=== PATIENT | female | born 1990 | race American Indian/Alaskan Native ===

== ENCOUNTER 2020-08-04 09:20 | Emergency (ER) | payer OTHER ==
--- NOTE | 2020-08-05 07:43 | Ultrasound Report ---
FIRSTTRIMESTER OBSTETRIC ULTRASOUND ULTRASOUND OB TRANSVAGINAL HISTORY: Vaginal bleeding during COMPARISON: None. TECHNIQUE: Routine transabdominal and transvaginal OB ultrasound performed. FINDINGS: Uterus: Mildly enlarged measuring 11.5 x 4.5 x 6.8 cm. Gestational Sac: Well-defined oval shape and intrauterine in location. Yolk Sac: Normal in appearance. Fetus/Embryo: [place]-rump length of 1.2 cm, corresponding to an estimated gestational age of 7 weeks 3 days. Embryonic/ anatomy is too small for evaluation. Embryonic/ cardiac activity: 147bpm Placenta: Too small for evaluation. Amniotic fluid volume: Subjectively appropriate for gestational age. Ovaries: The right ovary is normal in size and appearance with normal blood flow, measuring 3.2 x 1. 8 x 3.3 cm. The left ovary is mildly enlarged and contains multiple small cysts or prominent follicl es, the left ovary measures 5.3 x 3.1 x 5.5 cm. Hypoechoic space-occupying mass in the right ovary w ith peripheral vascularity is most likely the corpus luteum. Additional findings: A small subchorionic hemorrhage is identified. IMPRESSION Early live intrauterine . Small subchorionic hemorrhage. Slightly enlarged left ovary with multiple small cysts or prominent follicles. Consider follow-up. Signer Name: Damián Spicer Jr, MD Signed: 08/05/2020 7:38 AM Workstation Name: [id number]
[2020-08-06 12:47] LABS: Alanine Aminotransferase 14 units/L (7-56); Albumin 3.8 g/dL (3.9-5); BUN/Creatinine Ratio 8; Blood Urea Nitrogen 6 mg/dL (7-17); Calcium 8.8 mg/dL (8.4-10.2)
== END 2020-08-04 12:50 | disposition home or self-care (01) ==
LOC: ED 09:20
DX: O20.8 Other hemorrhage in early pregnancy (principal)
CPT/HCPCS: 36415; 76801; 76817; 80053; 84702; 86900; 86901; 99283

== ENCOUNTER 2021-01-28 23:24 | Outpatient (CLI) | payer OTHER ==
[2021-01-28 23:52] VITALS: BP 126/74
[2021-01-29] MEDS ORDERED: LACTATED RINGERS 1,000 ML IV ONE (00:02)
[2021-01-29 00:38] LABS: Bacteria,Urine 1+ /HPF (Negative); Bilirubin,Urine NEG (Negative); Blood,Urine NEG (Negative); Color,Urine Yellow (Yellow); Mucus,Urine FEW /HPF; Protein,Urine <15 mg/dL mg/dL (Negative); RBC,Urine < 1.0 /HPF (0.0-6.0)
--- NOTE | 2021-01-29 01:52 | Ultrasound Report ---
Limited OB Ultrasound HISTORY: placenta placement, rule out abruption. TECHNIQUE: Grayscale and color imaging performed. COMPARISON: 08/04/2020 FINDINGS: Single viable intrauterine gestation with cephalic presentation. The placenta is fundal in location with no acute abnormality identified. Heart rate of the fetus is 138 bpm. IMPRESSION: Single viable intrauterine gestation with fundal position of the placenta and no acute ab normality. Signer Name: Chetan Alford MD Signed: 01/29/2021 1:48 AM Workstation Name: [id number]
== END 2021-01-29 00:50 | disposition home or self-care (01) ==
LOC: TRG 23:24 → APU 23:31 → TRG 01-29 00:50
PROVIDERS: ATTEND Obstetrics & Gynecology
DX: O47.03 False labor before 37 completed weeks of gestation, third trimester (principal); Z3A.32 32 weeks gestation of pregnancy
CPT/HCPCS: 59025; 76815; 81001

== ENCOUNTER 2021-02-23 13:42 | Outpatient (CLI) | payer OTHER ==
[2021-02-23] MEDS ORDERED: ACETAMINOPHEN 325 MG TAB PO ONE (15:37)
[2021-02-23] MEDS ORDERED: LACTATED RINGERS 1,000 ML IV SCH (15:45)
[2021-02-23 16:11] LABS: Bacteria,Urine 1+ /HPF (Negative); Bilirubin,Urine NEG (Negative); Blood,Urine NEG (Negative); Color,Urine Amber (Yellow); Mucus,Urine FEW /HPF
[2021-02-23 16:22] LABS: Hematocrit 28.2 % (30.3-42.9); Hemoglobin 9.7 gm/dl (10.1-14.3); Mean Corpuscular HGB Conc 34 % (30-34); Mean Corpuscular Volume 92 fl (79-97); Platelet Count 333 K/mm3 (140-440); Red Blood Count 3.07 M/mm3 (3.65-5.03)
[2021-02-23 16:49] LABS: Alanine Aminotransferase 72 units/L (7-56); Uric Acid 3.7 mg/dL (3.5-7.6)
[2021-02-23] MEDS ORDERED: BUTALB/ACETAMINOPHEN/CAFFEINE TAB PO PRN (17:00)
--- NOTE | 2021-02-23 17:00 | Ultrasound Report ---
US OB BPP wo non-stress, US OB limited INDICATION / CLINICAL INFORMATION: well being. COMPARISON: 01/29/2021 FINDINGS: Single, viable intrauterine in cephalic presentation. heart rate 139. Amniotic fluid volume is normal, with a fluid index of 15 cm. Biophysical profile: breathing movements: 2 movements: 2 posture and tone: 2 Amniotic fluid volume: 2 Total biophysical profile score 8/8 IMPRESSION: 1. Single, viable intrauterine . Biophysical profile score of 8/8. Signer Name: Melvin Cobos MD Signed: 02/23/2021 4:55 PM Workstation Name: [id number]
[2021-02-23] MEDS ORDERED: diphenhydrAMINE 50 MG/ML VIAL IV ONE (18:36)
[2021-02-23] MEDS ORDERED: PROCHLORPERAZINE EDISYLATE 10 MG/2 ML VIAL IV NR (18:37)
[2021-02-23 20:36] VITALS: BP 118/53
== END 2021-02-23 21:03 | disposition home or self-care (01) ==
LOC: TRG 13:42 → APU 13:43 → TRG 21:03
DX: O60.03 Preterm labor without delivery, third trimester (principal); Z3A.36 36 weeks gestation of pregnancy
CPT/HCPCS: 36415; 59025; 76815; 76819; 81001; 82565; 83615; 84450; 84460; 84550; 85027; 96365; 96368; J0780; J1200; 96374; 96375

== ENCOUNTER 2021-03-02 05:59 | Inpatient (IN) | payer OTHER ==
[~2021-03-02 05:59] MED LIST: CARBOPROST TROMETHAMINE 250 MCG/1 ML INJ IM PRN; LOPERAMIDE 2 MG CAP PO PRN; METHYLERGONOVINE MALEATE 0.2 MG/ML VIAL IM PRN; OXYTOCIN 10 UNIT/1 ML INJ IM PRN; OXYTOCIN DRIP 30 UNITS/500 ML BAG IV SCH; TERBUTALINE 1 MG/1 ML INJ SUB-Q PRN; ePHEDrine SULFATE 50 MG/1 ML INJ IV PRN; miSOPROStol 200 MCG TAB PR PRN
[2021-03-02] MEDS: LACTATED RINGERS 1,000 ML IV SCH ×4 (06:30→22:23)
[2021-03-02 06:38] LABS: Hematocrit 28.7 % (30.3-42.9); Mean Corpuscular HGB Conc 35 % (30-34); Mean Corpuscular Volume 92 fl (79-97); Platelet Count 324 K/mm3 (140-440); Red Blood Count 3.12 M/mm3 (3.65-5.03); Red Cell Distribution Width 19.4 % (13.2-15.2)
[2021-03-02] MEDS ORDERED: METOCLOPRAMIDE 10 MG/2 ML INJ IV ONE (06:45)
[2021-03-02] MEDS ORDERED: FAMOTIDINE 20 MG/2 ML INJ IV ONE (06:45)
[2021-03-02] MEDS ORDERED: BICITRA ORAL LIQD 30ML PO ONE (06:45)
[2021-03-02] MEDS ORDERED: ceFAZolin/STERILE WATER 2 GM/20 ML SYRINGE IV NR (06:45)
[2021-03-02] MEDS ORDERED: dexAMETHasone 20 MG/5 ML VIAL ONE (07:20)
[2021-03-02] MEDS ORDERED: ONDANSETRON 4 MG/2 ML INJ ONE (07:20)
[2021-03-02] MEDS ORDERED: BUPIVACAINE/PF (0.5%) 5 MG/1 ML 30 ML VIAL INFILTRATI ONE (07:20)
[2021-03-02] MEDS ORDERED: KETOROLAC 30 MG/1 ML INJ ONE (07:20)
--- NOTE | 2021-03-02 07:32 | History and Physical Report ---
History of Present Illness Date of examination: 03/02/21 Date of admission: 03/02/21 05:59 Chief complaint: scheduled section History of present illness: Pt is a 31 year old BOLA 04/02/21 at 37w0d who presents for scheduled section due to gestational hypertension, previous x 2, gestational diabetes, and morbid obesity. She reports movement, denies vaginal bleeding, leakage of fluid and reports irregular contractions. She has had limited care at [facility] for three visits with comanagement by [facility] complicated by the aforementioned issues as well as congenital HSV, anemia on iron supplementation, and lapse in care from 14 to 36 wks when pt reports care at [place] but records not yet received. She is GBS negative. Past History Past Medical History: hypertension (gestational ), diabetes (gestational, non compliant with metformin ) Past Surgical History: cholecystectomy, section (x 2 ) PROGRAM SUPERVISOR History: herpes Family/Genetic History: diabetes, heart disease Social history: no significant social history - Obstetrical History Expected Date of Delivery: 03/23/21 Actual Gestation: 37 Week(s) 0 Day(s) : 3 Para: 2 Hx # Term Pregnancies: 2 Number of Pregnancies: 0 Spontaneous Abortions: 0 Induced : 0 Number of Living Children: 2 Medications and Allergies Allergies Allergy/AdvReac Type Severity Reaction Status Date / Time No Known Allergies Allergy Verified 09/04/15 09:33 Home Medications Medication Instructions Recorded Confirmed Last Taken Type Ferrous Sulfate [Iron 325 MG] 1 tab PO DAILY 03/02/21 03/02/21 Unknown History Vit-Fe Fumar-FA [ 1 tab PO DAILY 03/02/21 03/02/21 Unknown History Vitamin] metFORMIN [Glucophage] 1 tab PO DAILY 03/02/21 03/02/21 Unknown History Active Meds: Active Medications Carboprost Tromethamine (Carboprost Tromethamine 250 Mcg/1 Ml Inj) 250 mcg IM ONCE PRN PRN Reason: Uterine Bleeding Cefazolin Sodium (Cefazolin/Sterile Water 2 Gm/20 Ml Syringe) 2 gm IV PREOP NR Stop: 03/02/21 23:59 Ephedrine Sulfate (Ephedrine Sulfate 50 Mg/1 Ml Inj) 10 mg IV Q2M PRN PRN Reason: Hypotension Lactated Ringer's (Lactated Ringers) 1,000 mls @ 2,250 mls/hr IV PREOP MITALI Stop: 03/03/21 05:27 Last Admin: 03/02/21 07:15 Dose: 2,250 mls/hr Documented by: Oxytocin/Sodium Chloride (Pitocin/Ns 30 Unit/500ml) 30 units in 500 mls @ 0 mls/hr IV TITR MITALI; Protocol Cefazolin Sodium 3 gm/ Sodium (Chloride) 100 mls @ 100 mls/30 min IV PREOP NR; Protocol Loperamide HCl (Loperamide 2 Mg Cap) 2 mg PO ONCE PRN PRN Reason: give with Hemabate Methylergonovine Maleate (Methylergonovine Maleate 0.2 Mg/Ml Vial) 0.2 mg IM ONCE PRN PRN Reason: Uterine Bleeding Misoprostol (Misoprostol 200 Mcg Tab) 800 mcg ID ONCE PRN PRN Reason: Uterine Bleeding Oxytocin (Oxytocin 10 Unit/1 Ml Inj) 10 unit IM ONCE PRN PRN Reason: Uterine Bleeding Terbutaline Sulfate (Terbutaline 1 Mg/1 Ml Inj) 0.25 mg SUB-Q ONCE PRN PRN Reason: Hyperstimulation/Hypertonicity Review of Systems All systems: negative - Vital Signs Vital signs: Vital Signs Temp Resp 97.9 F 18 03/02/21 06:20 03/02/21 06:20 Temp Pulse Resp BP Pulse Ox 97.9 F 103 H 18 124/67 100 03/02/21 06:20 03/02/21 07:13 03/02/21 06:20 03/02/21 06:58 03/02/21 07:13 - Physical Exam Breasts: Positive: deferred Abdomen: Positive: soft (obese, gravid ) Uterus: Positive: enlarged Extremities: Positive: edema - Obstetrical FHR: auscultation normal Uterine Contraction Monitor Mode: External Uterine Contraction Pattern: Irregular Uterine Tone Measurement Phase: Resting Results Result Diagrams: 03/02/21 06:20 Abnormal lab results 03/02/21 Range/Units 06:20 RBC 3.12 L (3.65-5.03) M/mm3 Hgb 10.0 L (10.1-14.3) gm/dl Hct 28.7 L (30.3-42.9) % MCHC 35 H (30-34) % RDW 19.4 H (13.2-15.2) % All other labs normal. Assessment and Plan A: IUP at 37w0d Gestational Hypertension Gestational Diabetes, non compliant with metformin Previous x 2 Morbid Obesity Anemia GBS Negative P: Admit to labor and delivery Prepare for repeat section and other indicated procedures
[2021-03-02] MEDS ORDERED: ceFAZolin/STERILE WATER 2 GM/20 ML SYRINGE IV ONE (07:35)
--- NOTE | 2021-03-02 07:49 | Anesthesia Day of Surgery ---
Anesthesia Day of Surgery - Day of Surgery Patient Examined: Yes Patient H&P Reviewed: Yes Patient is NPO: Yes Beta Blockers: No Cardiac Clearance: No Pulmonary Clearance: No Dhaval's Test: N/A
--- NOTE | 2021-03-02 07:50 | Anesthesia Consultation ---
Anesthesia Consult and Med Hx Date of service: 03/02/21 - Airway Anesthetic Teeth Evaluation: Good ROM Head & Neck: Adequate Mental/Hyoid Distance: Adequate Mallampati Class: Class IV Intubation Access Assessment: Difficult - Pulmonary Exam CTA: Yes - Cardiac Exam Cardiac Exam: RRR - Pre-Operative Health Status ASA Pre-Surgery Classification: ASA3 Proposed Anesthetic Plan: Spinal Nerve Block: TAP - Pulmonary Hx Smoking: No Hx Asthma: No Hx Sleep Apnea: No - Cardiovascular System Hx Hypertension: Yes Hx Heart Attack/AMI: No Hx Angina: No - Central Nervous System Hx Seizures: No Hx Psychiatric Problems: Yes (DEPRESSION, ANXIETY) - Gastrointestinal Hx Gastroesophageal Reflux Disease: No - Endocrine Hx Renal Disease: No Hx Liver Disease: No Hx Insulin Dependent Diabetes: Yes Hx Non-Insulin Dependent Diabetes: No Hx Hypothyroidism: No Hx Hyperthyroidism: No - Hematic Hx Anemia: No Hx Sickle Cell Disease: No - Other Systems Hx Alcohol Use: Yes (sociallly prior to ) Hx Substance Use: Yes (occasional marijuana) Hx Obesity: Yes
[2021-03-02] MEDS ORDERED: diphenhydrAMINE 50 MG/ML VIAL IV PRN (07:51)
[2021-03-02] MEDS ORDERED: NalbUPHINE 10 MG/1 ML INJ IV PRN (07:51)
--- NOTE | 2021-03-02 07:51 | Progress Note ---
Spinal Anesthesia Block - Spinal Anesthesia Block Start Time: 07:25 Stop Time: 07:35 Performed by:: LUCIA CHI (Caden MCCANN) Procedure: Spinal anesthesia block is being performed for [C/S]. H&P, labs have been reviewed. Patient's questions and concerns have been answered. Informed consent has been performed. Timeout has was performed. Patient in sitting position on side of bed. Sterile prep and drape was performed. 3 mL 1% lid ocaine skin wheal at L [2]-L [3]. Needle introducer advanced. 25-gauge spinal needle advanced, [+] CSF [-] blood. [Marcaine 10mg and Precedex 5mcg] Spinal dose was given. All needles removed. Patient tolerated procedure well.
[2021-03-02] MEDS ORDERED: ONDANSETRON 4 MG/2 ML INJ IV PRN (08:00)
[2021-03-02] MEDS ORDERED: PROMETHAZINE 25 MG TAB PO PRN (08:00)
[2021-03-02] MEDS ORDERED: PROMETHAZINE 25 MG RECT SUPP PR PRN (08:00)
[2021-03-02] MEDS ORDERED: NALOXONE 0.4 MG/1 ML INJ IV PRN ×2 (08:00→11:57)
[2021-03-02] MEDS ORDERED: HYDROmorphone 1 MG/1 ML INJ IV PRN (08:00)
[2021-03-02] MEDS ORDERED: LACTATED RINGERS 1,000 ML ONE (08:11)
[2021-03-02] MEDS ORDERED: PHENYLEPHRINE/NS 1,000 MCG/10 ML SYRINGE (OR USE) IV ONE (08:41)
--- NOTE | 2021-03-02 09:54 | Procedure Note ---
OB Delivery Note - Delivery Date of Delivery: 03/02/21 Surgeon: ABIODUN CHATTERJEE Estimated blood loss: other (812 mL) - Section Preop diagnosis: repeat , other (Gestational Hypertension ) Postop diagnosis: same section procedure: section, repeat low transverse Disposition: PACU Narrative: Please see operative report - A at 1 minute: 8 at 5 minutes: 9 Infant Gender: Male (3480g (7lb 10.7 oz) @ 0824 am)
--- NOTE | 2021-03-02 09:55 | Operative Report ---
Operative Report Operative Report: Date of procedure: March 02, 2021 Preoperative diagnosis: 1) IUP at 37w0d 2) Gestational Hypertension 3) Previous x 2 4) Morbid Obesity 45 5) Gestational Diabetes A2 6) Insufficient Care Postoperative diagnosis: Same Procedure: Repeat low transverse section Surgeon: Sangita Mcneill M.D. Anesthesia: Regional Findings: 1) Viable male , Apgars 8 and 9, weight 3480 g, (7 lb 10.7 oz) in cephalic presentation 2) Normal-appearing uterus ovaries and tubes Estimated blood loss: 812 mL IV fluids: 1800 mL Urine output: 100 mL, efe colored at the end of the procedure Drains: Hebert to gravity Specimens: Placenta to pathology Complications:None. Counts correct x 3 Disposition: Stable to PACU Indication for procedure: Pt is a 31 year old -[place] at 37w0d with gestational hypertension, previous x 2 presents for scheduled section. Operation in detail: After the risks, benefits, alternatives and complications were explained to the patient she gave informed consent for the procedure. She was subsequently taken to the operating room where regional anesthesia was noted to be adequate. She was placed in the dorsal supine position with leftward tilt and prepped and draped in a normal sterile fashion. heart tones were noted prior to incision. A timeout was performed. A Pfannenstiel skin incision was made with the knife and carried down to the layer of the fascia with the Bovie. The fascia was incised in the midline and t he fascial incision was extended bilaterally with the Bovie. The fascial incision was then stretched. The rectus muscles were then in the midline and partially transected for adequate visualization. The peritoneum was then entered bluntly. The peritoneal incision was extended with good visualization of the bladder. The peritoneal incision was then stretched. An Sandeep retractor was placed. The bladder blade was then placed. The vesicouterine peritoneum was grasped with smooth pick ups and incised with Metzenbaum scissors. A transverse incision was made in the lower uterine segment with a knife and extended bilaterally with the bandage scissors. Amniotomy was performed with egress of clear fluid. head delivered with some difficulty, followed by shoulders and body. bulb suctioned at delivery. Cord clamped and cut. handed to NICU staff in attendance. Cord blood was collected. The placenta was then delivered manually. The uterus was then cleared of all clots and debris. The hysterotomy was then reapproximated with 0 Monocryl in a running locked fashion. Additional figure of eight sutures of 0 Monocryl were used to obtain hemostasis. The hysterotomy was inspected and hemostasis was noted. The gutters were irrigated and cleared of all clots and debris. The hysterotomy was again inspected and noted to be hemostatic. Hemoblast was placed over the hysterotomy. The Sandeep retractor was removed. The peritoneum was reapproximated with 2-0 Vicryl in a running fashion. iThe rectus muscles were reapproximated with figure of eights of 2-0 Vicryl and 0 Vicryl. Surgicel was placed over the rectus muscles. The fascia was reapproximated with 0 Vicryl in a running fashion. The subcutaneous tissue was reapproximated with 3-0 Vicryl in a running fashion. The skin was reapproximated with 4-0 Vicryl in a subcuticular fashion. The incision was then covered with steri strips and a pressure dressing. The procedure was then ended. The patient tolerated the procedure well and was taken to the PACU in stable condition. All instrument, lap, and needle counts were correct 3.
[2021-03-02] MEDS ORDERED: DEXTROSE 50% IN WATER (25GM) 50 ML SYRINGE IV PRN (10:09)
--- NOTE | 2021-03-02 10:26 | Progress Note ---
Regional Anesthesia Block - Regional Anesthesia Block Start Time: 09:58 Stop Time: 10:04 Performed By:: LUCIA CHI (Caden MCCANN) Procedure: Patient consented for TAP block for post surgical pain management. Patient identified, monitors placed, and time out performed. Mid axillary TAP identified bilaterally via ultrasound. Skin prepped bilaterally with [chlorhexidine] and [20g stimuplex] needle advanced to the TAP. 30ml [Marcaine 0.25% with 25mcg Precedex and Decadron 5mg] injected under ultrasound guidance on the [left] side. 30ml [Marcaine 0.25% with 25mcg Precedex and Decadron 5mg] injected under ultrasound guidance on the [right] side. Negative aspiration every 5mL, Patient tolerated the procedure well. No apparent complications seen.
[2021-03-02] MEDS ORDERED: WITCH HAZEL/ GLYCERIN PAD TP PRN (11:57)
[2021-03-02] MEDS ORDERED: MORPHINE 2 MG/1 ML INJ IV PRN (11:57)
[2021-03-02] MEDS ORDERED: MORPHINE 4 MG/1 ML INJ IV PRN (11:57)
[2021-03-02] MEDS ORDERED: LANOLIN/ZINC/DIMETHICONE (LANSINOH) 7 GM TP PRN (11:57)
[2021-03-02] MEDS ORDERED: SIMETHICONE 80 MG CHEW TAB PO PRN (11:57)
[2021-03-02] MEDS: INSULIN REGULAR, HUMAN 100 UNITS/1 ML SUB-Q SCH ×2 (12:00→16:00)
[2021-03-02] MEDS: IBUPROFEN 800 MG TAB PO SCH (12:32)
[2021-03-02] MEDS ORDERED: OXYTOCIN DRIP 30 UNITS/500 ML BAG IV SCH (12:57)
[2021-03-02] MEDS ORDERED: D5W/LACTATED RINGERS 1,000 ML IV SCH (13:57)
[2021-03-02 14:34] LABS: Bilirubin,Urine SM (Negative); Blood,Urine NEG (Negative); Color,Urine Amber (Yellow); Mucus,Urine 3+ /HPF
[2021-03-02 14:47] LABS: Ictotest,Urine Negative (Negative)
[2021-03-02] MEDS: KETOROLAC 30 MG/1 ML INJ IV SCH ×2 (15:54→22:22)
[2021-03-02] MEDS: ceFAZolin/NS 1 GM/50 ML 1 GM/50 ML BAG IV SCH (15:54)
[2021-03-02 18:16] LABS: Hematocrit 27.2 % (30.3-42.9); Hemoglobin 9.3 gm/dl (10.1-14.3); Mean Corpuscular HGB Conc 34 % (30-34); Mean Corpuscular Volume 93 fl (79-97); Platelet Count 302 K/mm3 (140-440); Red Blood Count 2.93 M/mm3 (3.65-5.03)
[2021-03-02 19:52] LABS: Alanine Aminotransferase 58 units/L (7-56); Uric Acid 4.2 mg/dL (3.5-7.6)
[2021-03-03] MEDS: ceFAZolin/NS 1 GM/50 ML 1 GM/50 ML BAG IV SCH (00:24)
[2021-03-03 00:36] LABS: Hematocrit 23.8 % (30.3-42.9); Hemoglobin 8.2 gm/dl (10.1-14.3)
[2021-03-03] MEDS: IBUPROFEN 800 MG TAB PO SCH ×5 (01:42→18:09)
[2021-03-03] MEDS: KETOROLAC 30 MG/1 ML INJ IV SCH ×4 (04:46→18:17)
[2021-03-03] MEDS: INSULIN REGULAR, HUMAN 100 UNITS/1 ML SUB-Q SCH ×5 (05:26→15:53)
[2021-03-03] MEDS: oxyCODONE /ACETAMINOPHEN 5-325MG TAB PO PRN ×3 (07:43→22:37)
--- NOTE | 2021-03-03 08:18 | Progress Note ---
Assessment and Plan - Patient Problems (1) Status post repeat low transverse section Current Visit: Yes Status: Acute Plan to address problem: Continue routine PP orders Keep dressing clean and dry, remove on POD#2 Anticipate d/c home in 24-48 hr if stable (2) Gestational diabetes Current Visit: Yes Status: Acute Qualifiers: Gestational diabetes mellitus control: diet-controlled Plan to address problem: Change blood glucose monitoring to AC/HS with sliding scale coverage if needed Glucose levels have been normal PP (3) Anemia Current Visit: Yes Status: Acute Qualifiers: Anemia type: iron deficiency Plan to address problem: Asymptomatic Continue daily oral iron supplementation as ordered Increase iron rich foods into diet (4) Elevated ALT measurement Current Visit: Yes Status: Acute Plan to address problem: Repeat PIH labs ordered for this AM. Subjective - Subjective Date of service: 03/03/21 Principal diagnosis: S/P repeat C/S; POD#1 Interval history: Pt is a 31 year old BOLA 04/02/21 at 37w0d who presents for scheduled section due to gestational hypertension, previous x 2, gestational diabetes, and morbid obesity. She reports movement, denies vaginal bleeding, leakage of fluid and reports irregular contractions. She has had limited care at [facility] for three visits with comanagement by [facility] complicated by the aforementioned issues as well as congenital HSV, anemia on iron supplementation, and lapse in care from 14 to 36 wks when pt reports care at [place] but records not yet received. She is GBS negative. Patient reports: appetite normal, voiding normally, pain well controlled (with medications), flatus, ambulating normally, no bowel movement [place]: doing well, bottle feeding Objective - Vital Signs Latest vital signs: Vital Signs Temp Pulse Resp BP BP Pulse Ox 03/03/21 04:42 97.9 F 104 H 18 122/74 99 03/02/21 23:49 97.9 F 93 H 20 124/57 97 03/02/21 20:15 98.4 F 84 20 126/66 95 03/02/21 17:45 98.1 F 85 18 100/55 98 03/02/21 11:35 97.5 F L 78 16 104/54 99 03/02/21 10:52 97.5 F L 72 14 95/41 98 03/02/21 10:42 73 15 95/41 97 03/02/21 10:37 69 14 103/48 99 03/02/21 10:22 67 15 113/51 100 03/02/21 10:07 69 17 112/55 100 03/02/21 10:02 74 16 97/46 100 03/02/21 09:57 75 16 114/56 100 03/02/21 09:52 97.7 F 75 14 109/46 100 Intake and Output 03/02/21 03/03/21 03/03/21 23:59 07:59 15:59 Intake Total 1410 Output Total 650 1950 Balance 760 -1950 Intake: IV 1050 ANCEF/NS 1 GM/50 ML 1 gm 50 In 50 ml @ 100 mls/hr IV Q8H MITALI Rx#:[id number] Lactated Ringers 1,000 ml 1000 @ 125 mls/hr IV DIRECT MITALI Rx#:[id number] Intake, Free Water 360 Output: Urine 650 1950 Indwelling Catheter 650 800 Uretheral (Hebert) 800 Void 350 Other: Total, Output Amount 650 350 # Voids Void 1 - Exam Breasts: Present: normal Cardiovascular: Present: Regular rate Lungs: Present: Normal air movement Abdomen: Present: soft, tenderness Uterus: Present: firm, fundal height below umbilicus (U-1) Extremities: Present: edema (in ankles/feet) Incision: Present: dressed (no shadow drainage or bleeding noted) - Labs Labs: Abnormal lab results 03/02/21 03/02/21 03/02/21 Range/Units 10:26 12:12 13:50 WBC (4.5-11.0) K/mm3 RBC (3.65-5.03) M/mm3 Hgb (10.1-14.3) gm/dl Hct (30.3-42.9) % RDW (13.2-15.2) % POC Glucose 136 H 119 H (70-105) mg/dL AST (5-40) units/L ALT (7-56) units/L Lactate Dehydrogenase (91-180) units/L Urine WBC (Auto) 36.0 H (0.0-6.0) /HPF 03/02/21 03/02/21 03/02/21 Range/Units 15:59 17:52 17:52 WBC 13.1 H (4.5-11.0) K/mm3 RBC 2.93 L (3.65-5.03) M/mm3 Hgb 9.3 L (10.1-14.3) gm/dl Hct 27.2 L (30.3-42.9) % RDW 19.0 H (13.2-15.2) % POC Glucose 116 H (70-105) mg/dL AST 48 H (5-40) units/L ALT 58 H (7-56) units/L Lactate Dehydrogenase 219 H (91-180) units/L Urine WBC (Auto) (0.0-6.0) /HPF 03/03/21 03/03/21 03/03/21 Range/Units 00:12 00:29 04:40 WBC (4.5-11.0) K/mm3 RBC (3.65-5.03) M/mm3 Hgb 8.2 L (10.1-14.3) gm/dl Hct 23.8 L (30.3-42.9) % RDW (13.2-15.2) % POC Glucose 119 H 107 H (70-105) mg/dL AST (5-40) units/L ALT (7-56) units/L Lactate Dehydrogenase (91-180) units/L Urine WBC (Auto) (0.0-6.0) /HPF
[2021-03-03 08:38] LABS: Bilirubin,Urine NEG (Negative); Blood,Urine MOD (Negative); Color,Urine Amber (Yellow); Mucus,Urine 1+ /HPF
[2021-03-03 08:51] LABS: Hematocrit 24.5 % (30.3-42.9); Hemoglobin 8.6 gm/dl (10.1-14.3); Mean Corpuscular HGB Conc 35 % (30-34); Mean Corpuscular Volume 93 fl (79-97); Platelet Count 281 K/mm3 (140-440); Red Blood Count 2.63 M/mm3 (3.65-5.03); Red Cell Distribution Width 18.9 % (13.2-15.2)
[2021-03-03 09:10] LABS: Alanine Aminotransferase 57 units/L (7-56); Uric Acid 4.4 mg/dL (3.5-7.6)
[2021-03-03] MEDS ORDERED: CITALOPRAM 10 MG TAB PO NR (09:13)
--- NOTE | 2021-03-03 09:13 | Consultation ---
History of Present Illness - Reason for Consult Consult date: 03/03/21 Reason for consult: depression - History of Present Psychiatric Illness Anika Bliar is a 31y/o female patient who was admitted for childbirth by caesarian section. During my evaluation the patient was sitting in chair. Spouse and at bedside. The patient gives me permission to speak in front of him. She says she has a history of post- depression. The patient says she's been off her medication for months due to the . She says she was on celexa and would like to go back on it. The patient says it helped with the depression and anxiety. She denies SI/HI or hallucinations of any kind. She also denies any fear or feeling of endangerment. PAST PSYCHIATRIC HISTORY Diagnoses: PPD Suicide attempts or Self-harm behavior: Denies Prior psychiatric hospitalizations: Denies Substance Abuse history: Denies Previous psychiatric medications tried: celexa and trazodone Outpatient treatment: yes PAST MEDICAL HISTORY: None reported Family Psychiatric History: None reported or documented SOCIAL HISTORY Marital Status: Living Arrangements: with family Employment Status: Unemployed Access to guns/weapons: denies Education:high school diploma History of Abuse: Denies Legal History: Denies REVIEW OF SYSTEMS Constitutional: Negative for weight loss ENT: Negative for stridor Respiratory: Negative for cough or hemoptysis All other systems reviewed and are negative MENTAL STATUS EXAMINATION General Appearance and Behavior: Age appropriate, good hygiene, not wearing appropriate clothes, good eye contact, cooperative polite with questioning. Cooperation: Participating/engaged Psychomotor Behavior: Psychomotor agitation Mood: good Affect and affective range: congruent with stated mood Thought Process: goal directed Thought Content: none Speech: normal tone and pace Intellectual Functioning: Average Suicidal Ideation: Denies SI Homicidal Ideation: Denies HI Hallucinations: denies Delusions: none elicited Impulse Control: Impaired Insight and Judgment: Normal insight and judgment Memory: Normal Attention: Divided attention impaired Orientation: Alert, oriented, Assessment and Plan (1) Depression Current Visit: Yes Status: Acute Treatment Plan Celexa 10mg po daily Give first dose prior to discharge sitter: defer to primary Medical: per primary Disposition: do not recommend acute psychiatric inpatient treatment The patient to follow up in 7 to 14 days upon discharge The patient currently sees outpatient. Will sign off. Thank you for this consult Case staffed with Dr. Fragoso Medications and Allergies Allergies Allergy/AdvReac Type Severity Reaction Status Date / Time No Known Allergies Allergy Verified 09/04/15 09:33 Home Medications Medication Instructions Recorded Confirmed Last Taken Type Ferrous Sulfate [Iron 325 MG] 1 tab PO DAILY 03/02/21 03/02/21 Unknown History Vit-Fe Fumar-FA [ 1 tab PO DAILY 03/02/21 03/02/21 Unknown History Vitamin] metFORMIN [Glucophage] 1 tab PO DAILY 03/02/21 03/02/21 Unknown History Citalopram [celeXA] 10 mg PO QDAY #30 tablet 03/03/21 Unknown Rx Active Meds: Active Medications Carboprost Tromethamine (Carboprost Tromethamine 250 Mcg/1 Ml Inj) 250 mcg IM ONCE PRN PRN Reason: Uterine Bleeding Dextrose (Dextrose 50% In Water (25gm) 50 Ml Syringe) 50 ml IV Q30MIN PRN; Protocol PRN Reason: Hypoglycemia Diphenhydramine HCl (Diphenhydramine 50 Mg/Ml Vial) 12.5 mg IV Q2H PRN PRN Reason: Itching Diphtheria/Tetanus/Acell Pertussis (Tetanus,Diph,Pertuss(Acell) Vaccine 0.5 Ml Syringe) 0.5 ml IM .ONCE ONE Stop: 03/03/21 12:08 Ephedrine Sulfate (Ephedrine Sulfate 50 Mg/1 Ml Inj) 10 mg IV Q2M PRN PRN Reason: Hypotension Ferrous Sulfate (Ferrous Sulfate 325 Mg Tab) 325 mg PO QDAY MITALI Hydromorphone HCl (Hydromorphone 1 Mg/1 Ml Inj) 0.5 mg IV Q4H PRN PRN Reason: breakthrough pain > 7/10 Oxytocin/Sodium Chloride (Pitocin/Ns 30 Unit/500ml) 30 units in 500 mls @ 0 mls/hr IV TITR MITALI; Protocol Oxytocin/Sodium Chloride (Pitocin/Ns 30 Unit/500ml) 30 units in 500 mls @ 40 mls/hr IV TITR MITALI; Protocol Lactated Ringer's (Lactated Ringers) 1,000 mls @ 125 mls/hr IV DIRECT MITALI Last Admin: 03/02/21 22:23 Dose: 125 mls/hr Documented by: Ibuprofen (Ibuprofen 800 Mg Tab) 800 mg PO Q6H MITALI Last Admin: 03/03/21 01:43 Dose: Not Given Documented by: Insulin Human Regular (Insulin Regular, Human 100 Units/1 Ml) 0 units SUB-Q Q4H [facility]; Protocol Last Admin: 03/03/21 05:27 Dose: Not Given Documented by: Ketorolac Tromethamine (Ketorolac 30 Mg/1 Ml Inj) 30 mg IV Q6H [facility] Stop: 03/07/21 12:56 Last Admin: 03/03/21 04:46 Dose: 30 mg Documented by: Loperamide HCl (Loperamide 2 Mg Cap) 2 mg PO ONCE PRN PRN Reason: give with Hemabate Magnesium Hydroxide (Magnesium Hydroxide (Mom) Oral Liqd Udc) 30 ml PO QHS PRN PRN Reason: Constip Unrelieved By Senna Measles/Mumps/Rubella Vaccine Live (Measles, Mumps & Rubella 12,500 Unit/0.5 Ml Vaccine) 0.5 ml SUB-Q .ONCE ONE Stop: 03/03/21 12:08 Misoprostol (Misoprostol 200 Mcg Tab) 800 mcg KS ONCE PRN PRN Reason: Uterine Bleeding Morphine Sulfate (Morphine 2 Mg/1 Ml Inj) 2 mg IV Q4H PRN PRN Reason: Pain, Moderate (4-6) Last Admin: 03/02/21 19:58 Dose: 2 mg Documented by: Morphine Sulfate (Morphine 4 Mg/1 Ml Inj) 4 mg IV Q4H PRN PRN Reason: Pain , Severe (7-10) Multi-Ingredient Ointment (Lanolin/Zinc/Dimethicone (Lansinoh) 7 Gm) 1 applic TP PRN PRN PRN Reason: dryness/cracking Nalbuphine HCl (Nalbuphine 10 Mg/1 Ml Inj) 2.5 mg IV Q2H PRN PRN Reason: Itching Naloxone HCl (Naloxone 0.4 Mg/1 Ml Inj) 0.1 mg IV Q2MIN PRN PRN Reason: Res Rate </= 8 or 02 SAT < 92% Ondansetron HCl (Ondansetron 4 Mg/2 Ml Inj) 4 mg IV Q8H PRN PRN Reason: Nausea And Vomiting Oxycodone/Acetaminophen (Oxycodone /Acetaminophen 5-325mg Tab) 2 tab PO Q4H PRN PRN Reason: Pain, Moderate (4-6) Last Admin: 03/03/21 07:43 Dose: 2 tab Documented by: Promethazine HCl (Promethazine 25 Mg Tab) 25 mg PO Q6H PRN PRN Reason: Nausea And Vomiting Promethazine HCl (Promethazine 25 Mg Rect Supp) 25 mg KS Q6H PRN PRN Reason: Nausea And Vomiting Simethicone (Simethicone 80 Mg Chew Tab) 80 mg PO Q6H PRN PRN Reason: Gas pain Sodium Chloride (Sodium Chloride 0.9% 10 Ml Flush Syringe) 10 ml IV PRN MITALI Witch Belen/Glycerin (Witch Belen/ Glycerin Pad) 1 each TP PRN PRN PRN Reason: Hemorrhoids/cleansing/soothing Mental Status Exam - Vital signs Last Vital Signs Temp 97.4 F L 03/03/21 08:48 Pulse 98 H 03/03/21 08:48 Resp 18 03/03/21 08:48 BP 126/69 03/03/21 08:48 Pulse Ox 100 03/03/21 08:48 Results Result Diagrams: 03/03/21 08:27 03/02/21 17:52 Abnormal lab results 03/02/21 03/02/21 03/02/21 Range/Units 10:26 12:12 13:50 WBC (4.5-11.0) K/mm3 RBC (3.65-5.03) M/mm3 Hgb (10.1-14.3) gm/dl Hct (30.3-42.9) % MCH (28-32) pg MCHC (30-34) % RDW (13.2-15.2) % POC Glucose 136 H 119 H (70-105) mg/dL AST (5-40) units/L ALT (7-56) units/L Lactate Dehydrogenase (91-180) units/L Urine WBC (Auto) 36.0 H (0.0-6.0) /HPF 03/02/21 03/02/21 03/02/21 Range/Units 15:59 17:52 17:52 WBC 13.1 H (4.5-11.0) K/mm3 RBC 2.93 L (3.65-5.03) M/mm3 Hgb 9.3 L (10.1-14.3) gm/dl Hct 27.2 L (30.3-42.9) % MCH (28-32) pg MCHC (30-34) % RDW 19.0 H (13.2-15.2) % POC Glucose 116 H (70-105) mg/dL AST 48 H (5-40) units/L ALT 58 H (7-56) units/L Lactate Dehydrogenase 219 H (91-180) units/L Urine WBC (Auto) (0.0-6.0) /HPF 03/03/21 03/03/21 03/03/21 Range/Units 00:12 00:29 04:40 WBC (4.5-11.0) K/mm3 RBC (3.65-5.03) M/mm3 Hgb 8.2 L (10.1-14.3) gm/dl Hct 23.8 L (30.3-42.9) % MCH (28-32) pg MCHC (30-34) % RDW (13.2-15.2) % POC Glucose 119 H 107 H (70-105) mg/dL AST (5-40) units/L ALT (7-56) units/L Lactate Dehydrogenase (91-180) units/L Urine WBC (Auto) (0.0-6.0) /HPF 03/03/21 Range/Units 08:27 WBC (4.5-11.0) K/mm3 RBC 2.63 L (3.65-5.03) M/mm3 Hgb 8.6 L (10.1-14.3) gm/dl Hct 24.5 L (30.3-42.9) % MCH 33 H (28-32) pg MCHC 35 H (30-34) % RDW 18.9 H (13.2-15.2) % POC Glucose (70-105) mg/dL AST (5-40) units/L ALT (7-56) units/L Lactate Dehydrogenase (91-180) units/L Urine WBC (Auto) (0.0-6.0) /HPF All other labs normal.
[2021-03-03] MEDS: FERROUS SULFATE 325 MG TAB PO SCH (10:43)
[2021-03-03] MEDS: MAGNESIUM HYDROXIDE (MOM) ORAL LIQD UDC PO PRN (11:24)
[2021-03-03] MEDS ORDERED: FLU VACC QUAD 2020-2021 (6 months +)/PF 60 0.5 ML SYRINGE IM ONE (12:00)
[2021-03-03] MEDS ORDERED: TETANUS,DIPH,PERTUSS(ACELL) VACCINE 0.5 ML SYRINGE IM ONE (12:07)
[2021-03-03] MEDS ORDERED: MEASLES, MUMPS & RUBELLA 12,500 UNIT/0.5 ML VACCINE SUB-Q ONE (12:07)
--- NOTE | 2021-03-03 16:45 | Post Anesthesia Evaluation ---
- Post Anesthesia Evaluation Patient Participated: Yes Airway Patent: Yes Stable Respiratory Function: Yes Nausea/Vomiting: No Temp > 96.8F: Yes Pain Manageable: Yes Adequeate Hydration: Yes Anesthesia Complications: No Block Receding Appropriately: Yes Patient on Ventilator: No
[2021-03-04] MEDS: KETOROLAC 30 MG/1 ML INJ IV SCH (00:10)
[2021-03-04] MEDS: INSULIN REGULAR, HUMAN 100 UNITS/1 ML SUB-Q SCH ×7 (03:00→20:28)
[2021-03-04] MEDS: IBUPROFEN 800 MG TAB PO SCH ×2 (03:17→20:33)
--- NOTE | 2021-03-04 08:48 | Progress Note ---
Assessment and Plan - Patient Problems (1) Status post repeat low transverse section Current Visit: Yes Status: Acute Plan to address problem: Continue routine PP orders Keep incision clean and dry, abdominal binder as desired Anticipate d/c home in 24 hr if stable (2) Gestational diabetes Current Visit: Yes Status: Acute Qualifiers: Gestational diabetes mellitus control: diet-controlled Plan to address problem: Continue blood glucose monitoring as ordered (3) Anemia Current Visit: Yes Status: Acute Qualifiers: Anemia type: iron deficiency Plan to address problem: Asymptomatic Continue daily oral iron supplementation as ordered Increase iron rich foods into diet (4) Elevated ALT measurement Current Visit: Yes Status: Acute Plan to address problem: Remains elevated on 03/03/21 B/P stable Subjective - Subjective Date of service: 03/04/21 Principal diagnosis: S/P repeat C/S; POD#2 Interval history: Pt is a 31 year old BOLA 04/02/21 at 37w0d who presents for scheduled section due to gestational hypertension, previous x 2, gestational diabetes, and morbid obesity. She reports movement, denies vaginal bleeding, leakage of fluid and reports irregular contractions. She has had limited care at [facility] for three visits with comanagement by [facility] complicated by the aforementioned issues as well as congenit al HSV, anemia on iron supplementation, and lapse in care from 14 to 36 wks when pt reports care at [facility] but records not yet received. She is GBS negative. Patient reports: appetite normal, voiding normally, pain well controlled (with medications), flatus, ambulating normally [place]: doing well, bottle feeding Objective - Vital Signs Latest vital signs: Vital Signs Temp Pulse Resp BP Pulse Ox 03/04/21 01:07 98.0 F 91 H 20 124/73 99 03/03/21 15:46 97.8 F 91 H 18 135/54 99 03/03/21 08:48 97.4 F L 98 H 18 126/69 100 Intake and Output 03/03/21 03/04/21 03/04/21 23:59 07:59 15:59 Intake Total 480 240 Balance 480 240 Intake: Oral 480 240 Other: Total, Intake Amount 240 240 # Voids Void 1 1 - Exam Breasts: Present: normal Cardiovascular: Present: Regular rate Lungs: Present: Normal air movement Abdomen: Present: soft, tenderness Uterus: Present: firm, fundal height below umbilicus (U-2) Extremities: Present: edema Incision: Present: dry, intact - Labs Labs: Abnormal lab results 03/03/21 03/03/21 03/03/21 Range/Units 07:46 08:27 08:27 RBC 2.63 L (3.65-5.03) M/mm3 Hgb 8.6 L (10.1-14.3) gm/dl Hct 24.5 L (30.3-42.9) % MCH 33 H (28-32) pg MCHC 35 H (30-34) % RDW 18.9 H (13.2-15.2) % POC Glucose 126 H (70-105) mg/dL AST 48 H (5-40) units/L ALT 57 H (7-56) units/L Lactate Dehydrogenase 218 H (91-180) units/L
[2021-03-04] MEDS: oxyCODONE /ACETAMINOPHEN 5-325MG TAB PO PRN ×2 (09:27→17:00)
[2021-03-04] MEDS: FERROUS SULFATE 325 MG TAB PO SCH (09:27)
[2021-03-04] MEDS: MAGNESIUM HYDROXIDE (MOM) ORAL LIQD UDC PO PRN (12:28)
[2021-03-05] MEDS: INSULIN REGULAR, HUMAN 100 UNITS/1 ML SUB-Q SCH ×4 (00:04→11:20)
[2021-03-05] MEDS: IBUPROFEN 800 MG TAB PO SCH ×2 (06:23→13:58)
[2021-03-05 08:41] VITALS: BP 139/73
--- NOTE | 2021-03-05 08:43 | Progress Note ---
Assessment and Plan - Patient Problems (1) delivery delivered Current Visit: Yes Status: Acute Plan to address problem: patient doing better discharge home Subjective - Subjective Date of service: 03/05/21 Principal diagnosis: S/P repeat C/S; POD#2 Interval history: Patient reports feeling better. Pain is better controlled Patient reports: appetite normal, voiding normally, pain well controlled : doing well Objective - Vital Signs Latest vital signs: Vital Signs Temp Pulse Resp BP BP Pulse Ox 03/05/21 01:00 98.4 F 98 H 20 138/82 98 03/04/21 17:00 16 03/04/21 15:55 98.4 F 92 H 18 130/75 03/04/21 09:27 16 Intake and Output 03/04/21 03/05/21 03/05/21 22:59 06:59 14:59 Intake Total 240 Balance 240 Intake: Intake, Free Water 240 Other: # Voids Void 1 - Exam Abdomen: Present: normal appearance Incision: Present: normal
--- NOTE | 2021-03-05 08:44 | Discharge Summary ---
Providers - Providers Date of Admission: 03/02/21 05:59 Date of discharge: 03/05/21 Attending physician: BLANCA CHRISTIANSON 03/02/21 11:57 Consult to Jewel Bearing Facer [CONS] Routine Reason For Exam: 03/03/21 06:42 psychiatry consult [Consult to Mental Health] [CONS] Stat Reason For Exam: Depression: EPDS 20 Primary care physician: BLANCA CHRISTIANSON Hospitalization Reason for admission: section Delivery: Procedure: section, repeat low transverse Discharge diagnosis: IUP at term delivered Hospital course: Patient admitted for scheduled for gestational hypertension. See op note. complicated by depression. Patient re-initated on celexa and evaluated by psych. Denies suicidal or homocidial ideation. Disposition: - TO HOME OR SELFCARE - Discharge Diagnoses (1) delivery delivered Status: Acute Plan - Discharge Medications Prescriptions: Citalopram [celeXA] 20 mg PO QDAY #30 tablet Citalopram [celeXA] 10 mg PO QDAY #30 tablet Ibuprofen [Motrin] 800 mg PO Q8HR PRN #60 tablet PRN Reason: Pain , Severe (7-10) oxyCODONE /ACETAMINOPHEN [Percocet 5/325] 1 tab PO Q6HR PRN #30 tablet PRN Reason: Pain - Provider Discharge Summary Activity: no sex for 6 weeks, no heavy lifting 4 weeks, no strenuous exercise Diet: routine Instructions: routine Additional instructions: [] Smoking cessation referral if applicable(refer to patient education folder for contact #) [] Refer to [facility] Booklet Call your doctor immediately for: * Fever > 100.5 * Heavy vaginal bleeding ( >1 pad per hour) * Severe persistent headache * Shortness of breath * Reddened, hot, painful area to leg or breast * Drainage or odor from incision. * Keep incision clean and dry at all times and follow doctor's instructions regarding bathing/showering Schedule followup in one week with Dr Mcneill - Follow up plan
[2021-03-05] MEDS ORDERED: CITALOPRAM 10 MG TAB PO SCH (10:00)
[2021-03-05] MEDS: FERROUS SULFATE 325 MG TAB PO SCH (11:04)
== END 2021-03-05 15:30 | disposition home or self-care (01) | DRG 765 ==
LOC: APU 05:59 → OB 11:35
PROVIDERS: ADMIT Obstetrics & Gynecology; ATTEND Obstetrics & Gynecology
PROC: 10D00Z1 Extraction of Products of Conception, Low, Open Approach (ICD-10-PCS; principal; 2021-03-02)
PROC: 3E0234Z Introduction of Serum, Toxoid and Vaccine into Muscle, Percutaneous Approach (ICD-10-PCS; 2021-03-03)
DX: O13.4 Gestational [pregnancy-induced] hypertension without significant proteinuria, complicating childbirth (principal); D62 Acute posthemorrhagic anemia; O34.211 Maternal care for low transverse scar from previous cesarean delivery; Z3A.37 37 weeks gestation of pregnancy; E66.01 Morbid (severe) obesity due to excess calories; O24.429 Gestational diabetes mellitus in childbirth, unspecified control; O99.214 Obesity complicating childbirth; O99.02 Anemia complicating childbirth; F32.9 Major depressive disorder, single episode, unspecified; F41.9 Anxiety disorder, unspecified; O99.344 Other mental disorders complicating childbirth; Z20.822 Contact with and (suspected) exposure to COVID-19; Z37.0 Single live birth; Z88.3 Allergy status to other anti-infective agents; Z82.49 Family history of ischemic heart disease and other diseases of the circulatory system; Z23 Encounter for immunization
CPT/HCPCS: 36415; 59025; 81001; 82565; 82962; 83615; 84450; 84460; 84550; 85014; 85018; 85027; 86592; 86850; 86900; 86901; 87086; 88307; 90471; 90686; 96360; 96361; 96374; 96375; 99211; G0378; G0008; G0463; J0690; J1100; J1885; J2270; J2370; J2405; J2765; J3490; J7120; U0003

== ENCOUNTER 2021-03-11 12:59 | Emergency (ER) | payer OTHER ==
[2021-03-11 14:07] VITALS: BP 128/77
--- NOTE | 2021-03-11 15:35 | Event Note ---
ED Screening Note Date of service: 03/11/21 Time: 15:33 ED Screening Note: 31-year-old female patient presents to the emergency department with complaints of palpitations and vaginal bleeding starting this morning. Patient states she "woke up and her sheets were soaked with blood." Patient underwent section on March 02 without complications. OB is Dr. Mcneill. Additionally, patient reports foul smell emitting from her surgical incision. Tachycardic in triage. General: Awake, appropriately interactive, no acute distress. Neck: Supple. Full range of motion intact. Cardiovascular: Normal peripheral perfusion. Pulmonary: No respiratory distress. Patient is speaking normally without use of accessory muscles. Skin: No apparent rashes or lesions. Neurological: No facial asymmetry. Speech is clear. Follows commands. Patient is alert and oriented. Musculoskeletal: Moves all four extremities spontaneously with normal range of motion. Psych: Cooperative. Appropriate mood and affect. Initial labs ordered; decision to obtain imaging deferred to additional ED providers following full history and physical examination. I have greeted and performed a focused rapid initial assessment of this patient. A comprehensive ED assessment and evaluation of the patient, analysis of all test results, and completion of the medical decision-making process will be conducted by additional ED providers. This initial assessment/diagnostic orders/clinical plan/treatment(s) is/are subject to change based on patients health status, clinical progression and re-assessment. Further treatment and workup at subsequent clinical provider's discretion. Patient/guardian urged not to elope from the ED as their condition may be serious if not clinically assessed and managed.
[2021-03-11 16:00] LABS: Basophils # (Auto) 0.1 K/mm3 (0.0-0.1); Basophils % (Auto) 0.7 % (0.0-1.8); Eosinophils # (Auto) 0.3 K/mm3 (0.0-0.4); Eosinophils % (Auto) 2.7 % (0.0-4.3); Hematocrit 32.1 % (30.3-42.9); Hemoglobin 10.7 gm/dl (10.1-14.3); Lymphocytes # (Auto) 1.8 K/mm3 (1.2-5.4); Lymphocytes % (Auto) 17.4 % (13.4-35.0); Mean Corpuscular HGB Conc 33 % (30-34); Mean Corpuscular Volume 94 fl (79-97); Monocytes # (Auto) 0.5 K/mm3 (0.0-0.8); Monocytes % (Auto) 4.9 % (0.0-7.3); Platelet Count 496 K/mm3 (140-440); Red Blood Count 3.44 M/mm3 (3.65-5.03); Red Cell Distribution Width 18.2 % (13.2-15.2)
[2021-03-11 16:18] LABS: Alanine Aminotransferase 17 units/L (7-56); Albumin 4.1 g/dL (3.9-5); BUN/Creatinine Ratio 13; Blood Urea Nitrogen 10 mg/dL (7-17); Calcium 8.6 mg/dL (8.4-10.2); Hemolysis Index 3; INR 0.92 (0.87-1.13)
[2021-03-11 16:19] LABS: Partial Thromboplastin Time 25.8 Sec. (24.2-36.6)
--- NOTE | 2021-03-11 17:31 | Emergency Department Report ---
ED General Adult HPI - General Chief complaint: Vaginal Bleeding Stated complaint: CHEST/ADMONIAL PAIN/HEAVY BLEED Time Seen by Provider: 03/11/21 17:02 Source: patient Mode of arrival: Ambulatory Limitations: No Limitations - History of Present Illness Initial comments: 31-year-old female presents to the ER today with complaints of vaginal bleeding and palpitation. Patient states that she had a uncomplicated delivery March 02. She states that she was having some bleeding after the which she was told is to be expected but what was concerning for her today was that the bleeding was heavier than normal and she passed some clots. She states that she was holding her baby when she suddenly felt a gush in her vaginal area and when she looked it was lots of blood with clots. She has only used about 2 pads today, she states the first pad was soaked, and she is currently wearing a second pad. She denies any worsening abdominal pain since the increase bleeding today. She reports no abnormal discharge or UTI symptoms. She does complain of odor to her incision which she has noticed recently but no apparent pus drainage she has not noticed any increased redness or swelling around the wound. Patient also complains of palpitations which she also noticed this morning. She states that it feels like her heart is fluttering and she had some substernal chest tightness. She states that it has been intermittent throughout the day a little milder now since she has been in the ER. She denies any associated shortness of breath, cough, wheezing, fever or chills and she reports no leg swelling or calf pain. She states she smokes marijuana but denies any other illicit drug use. She states that she did have a coffee last night and so far has had 2 sodas but she denies any increased caffeine intake recently. She reports a history of gestational diabetes with this last she is not currently on any meds because she was taken off the meds by her OB other than the gestational diabetes she denies any other significant past history. Complaint: Vaginal bleeding; palpitation -: This morning Severity scale (0 -10): 7 - Related Data Home Medications Medication Instructions Recorded Confirmed Last Taken Ferrous Sulfate [Iron 325 MG] 1 tab PO DAILY 03/02/21 03/02/21 Unknown Vit-Fe Fumar-FA [ 1 tab PO DAILY 03/02/21 03/02/21 Unknown Vitamin] metFORMIN [Glucophage] 1 tab PO DAILY 03/02/21 03/02/21 Unknown Previous Rx's Medication Instructions Recorded Last Taken Type Citalopram [celeXA] 10 mg PO QDAY #30 tablet 03/03/21 Unknown Rx Citalopram [celeXA] 20 mg PO QDAY #30 tablet 03/05/21 Unknown Rx Ibuprofen [Motrin] 800 mg PO Q8HR PRN #60 tablet 03/05/21 Unknown Rx oxyCODONE /ACETAMINOPHEN [Percocet 1 tab PO Q6HR PRN #30 tablet 03/05/21 Unknown Rx 5/325] cephALEXin [Keflex] 500 mg PO Q8HR #21 cap 03/11/21 Unknown Rx Allergies Allergy/AdvReac Type Severity Reaction Status Date / Time No Known Allergies Allergy Verified 09/04/15 09:33 ED Review of Systems ROS: Stated complaint: CHEST/ADMONIAL PAIN/HEAVY BLEED Other details as noted in HPI Comment: All other systems reviewed and negative Constitutional: denies: chills, fever Eyes: denies: eye pain, eye discharge, vision change ENT: denies: ear pain, throat pain, dental pain, hearing loss, epistaxis, congestion Respiratory: denies: cough, shortness of breath, SOB with exertion, SOB at rest, wheezing Cardiovascular: chest pain (Substernal chest tightness), palpitations. denies: dyspnea on exertion, orthopnea, edema, syncope, paroxysmal nocturnal dyspnea Gastrointestinal: abdominal pain (Status post delivery, nothing worse recently). denies: nausea, diarrhea, constipation, hematemesis, melena, hematochezia Genitourinary: abnormal menses. denies: urgency, dysuria, frequency, hematuria, discharge Musculoskeletal: denies: back pain, joint swelling, arthralgia, myalgia Skin: denies: rash, lesions, change in hair/nails, pruritus Neurological: denies: headache, weakness, numbness, paresthesias, confusion, abnormal gait, vertigo Psychiatric: denies: anxiety, depression, auditory hallucinations, visual hallucinations, homicidal thoughts, suicidal thoughts Hematological/Lymphatic: denies: easy bleeding, easy bruising ED Past Medical Hx - Past Medical History Previous Medical History?: Yes Hx Hypertension: Yes Hx Heart Attack/AMI: No Hx Diabetes: No Hx Deep Vein Thrombosis: No Hx Liver Disease: No Hx Renal Disease: No Hx Sickle Cell Disease: No Hx Seizures: No Hx Asthma: No Hx HIV: No Additional medical history: anemia, ovarian cyst. gout - Surgical History Additional Surgical History: x1 - Social History Smoking Status: Never Smoker - Medications Home Medications: Home Medications Medication Instructions Recorded Confirmed Last Taken Type Ferrous Sulfate [Iron 325 MG] 1 tab PO DAILY 03/02/21 03/02/21 Unknown History Vit-Fe Fumar-FA [ 1 tab PO DAILY 03/02/21 03/02/21 Unknown History Vitamin] metFORMIN [Glucophage] 1 tab PO DAILY 03/02/21 03/02/21 Unknown History Citalopram [celeXA] 10 mg PO QDAY #30 tablet 03/03/21 Unknown Rx Citalopram [celeXA] 20 mg PO QDAY #30 tablet 03/05/21 Unknown Rx Ibuprofen [Motrin] 800 mg PO Q8HR PRN #60 tablet 03/05/21 Unknown Rx oxyCODONE /ACETAMINOPHEN [Percocet 1 tab PO Q6HR PRN #30 tablet 03/05/21 Unknown Rx 5/325] cephALEXin [Keflex] 500 mg PO Q8HR #21 cap 03/11/21 Unknown Rx ED Physical Exam - General Limitations: No Limitations General appearance: alert, in no apparent distress, obese - Head Head exam: Present: atraumatic, normocephalic, normal inspection - Eye Eye exam: Present: normal appearance, PERRL, EOMI Pupils: Present: normal accommodation - ENT ENT exam: Present: normal exam, mucous membranes moist - Neck Neck exam: Present: normal inspection, full ROM - Respiratory Respiratory exam: Present: normal lung sounds bilaterally. Absent: respiratory distress, wheezes, rales, rhonchi - Cardiovascular Cardiovascular Exam: Present: regular rate, normal rhythm, normal heart sounds - GI/Abdominal GI/Abdominal exam: Present: soft, tenderness (Around her scar in the suprapubic area but tenderness is mild with no guarding or rebound), other (C- section incision noted underneath the panniculus of abdomen. It does have a mild odor to the incision, but otherwise no apparent drainage, no cellulitis or swelling or wound dehiscence noted). Absent: distended, guarding, rebound - Extremities Exam Extremities exam: Present: normal inspection, full ROM. Absent: tenderness, pedal edema, calf tenderness - Neurological Exam Neurological exam: Present: alert, oriented X3, CN II-XII intact, normal gait - Psychiatric Psychiatric exam: Present: normal affect, normal mood - Skin Skin exam: Present: intact ED Course Vital Signs 03/11/21 14:06 Temperature 98.2 F Pulse Rate 105 H Respiratory 20 Rate Blood Pressure 128/77 [Right] O2 Sat by Pulse 100 Oximetry ED Medical Decision Making - Lab Data Result diagrams: 03/11/21 15:37 03/11/21 15:37 - EKG Data EKG shows normal: sinus rhythm (99) Rate: normal - EKG Data Interpretation: normal EKG - Radiology Data Radiology results: report reviewed Patient: IZABELLA DIAZ MR#: [id number] : 1990 Acct:[id number] Age/Sex: 31 / F ADM Date: 03/11/21 Loc: ED Attending Dr: Ordering Physician: MARIEL YOUNGBLOOD Date of Service: 03/11/21 Procedure(s): XR chest routine 2V Accession Number(s): [id number] cc: MARIEL YOUNGBLOOD Fluoro Time In Minutes: CHEST 2 VIEWS INDICATION / CLINICAL INFORMATION: Palpitations. FINDINGS: SUPPORT DEVICES: None. HEART / MEDIASTINUM: No significant abnormality. LUNGS / PLEURA: No significant pulmonary or pleural abnormality. No pneu mothorax. ADDITIONAL FINDINGS: No significant additional findings. IMPRESSION: 1. No acute findings. Signer Name: Ben Lemus MD Signed: 03/11/2021 6:26 PM Workstation Name: [id number] Transcribed By: BC Dictated By: Ben Lemus MD Electronically Authenticated By: Ben Lemus MD Signed Date/Time: 03/11/211825 DD/ 25 TD/TT: Patient: IZABELLA DIAZ MR#: [id number] : 1990 Acct:[id number] Age/Sex: 31 / F ADM Date: 03/11/21 Loc: ED Attending Dr: Ordering Physician: MARIEL YOUNGBLOOD Date of Service: 03/11/21 Procedure(s): CT chest w con Accession Number(s): [id number] cc: MARIEL YOUNGBLOOD CT CHEST WITH CONTRAST INDICATION / CLINICAL INFORMATION: Palpitations/chest tightness; postop . TECHNIQUE: Axial CT images were obtained through the chest after 100 mL IV contrast. All CT scans at this location are performed using CT dose reduction for ALARA by means of automated exposure control. COMPARISON: None available. FINDINGS: HEART: No significant abnormality. THORACIC AORTA: No significant abnormality. MEDIASTINUM and RENEE: No significant abnormality. LUNGS: No acute air space or interstitial disease. PLEURA: No significant pleural effusion. No pneumothorax. ADDITIONAL FINDINGS: Mild bilateral axillary adenopathy.. UPPER ABDOMEN: No significant abnormality. SKELETAL SYSTEM: No significant abnormality. IMPRESSION: 1. No significant abnormality. Signer Name: Ben Lemus MD Signed: 03/11/2021 8:44 PM Workstation Name: [id number] Transcribed By: Dictated By: Ben Lemus MD Electronically Authenticated By: Ben Lemus MD Signed Date/Time: 03/11/212043 DD/ 41 TD/TT: Patient: IZABELLA DIAZ MR#: [id number] : 1990 Acct:[id number] Age/Sex: 31 / F ADM Date: 03/11/21 Loc: ED Attending Dr: Ordering Physician: MARIEL YOUNGBLOOD Date of Service: 03/11/21 Procedure(s): US pelvic complete Accession Number(s): [id number] cc: MARIEL YOUNGBLOOD ULTRASOUND PELVIS INDICATION / CLINICAL INFORMATION: very heavy vag bleeding post . TECHNIQUE: Transabdominal. Duplex Color Doppler used: Yes. COMPARISON: Obstetric ultrasound dated 02/23/21 FINDINGS: UTERUS: - Appearance: Complex/hypoechoic collection in the lower uterine segment likely the site of C- section scar. This likely represents hematoma/blood clot. This measures 2.7 x 4.5 cm. - Size (cm): 13.7 x 6.0 x 9.3 - Endometrial Complex (if present): No significant abnormality.. Thickness in cm (if measured) = 0.3 - Mass or cyst: None. - Additional findings: None. RIGHT ADNEXA: No significant ovarian cyst or mass. Normal color Doppler blood flow. LEFT ADNEXA: Physiologic cyst in the left ovary. Normal color Doppler blood flow. URINARY BLADDER: Contracted. FREE FLUID: None. ADDITIONAL FINDINGS: None. IMPRESSION: 1. Probable hematoma/blood clot in the lower uterine segment related to C- section site. Signer Name: Minh Pruitt MD Signed: 03/11/2021 6:52 PM Workstation Name: [id number] Transcribed By: DT Dictated By: Tremaine Pruitt MD Electronically Authenticated By: Tremaine Pruitt MD Signed Date/Time: 03/11/21 983 - Medical Decision Making All Labs reviewed and unremarkable. EKG shows normal sinus rhythm without any significant dysrhythmias, STEMI or any other acute ischemic changes. CXR shows nothing acute. CTA negative DVT or Pelvic US shows IMPRESSION: 1. Probable hematoma/blood clot in the lower uterine segment related to site. Pt seen comfortably in the room, talking on phone, and not in any acute distre ss. She reports no worsening bleeding during stay. She is not toxic or ill- appearing. She is neurologically intact with a normal gait. She has some mild tenderness around her incision in the suprapubic region of her abdomen, but otherwise her abdominal exam is unremarkable. She does have a mild odor from the incision but overall no drainage, cellulitis or signs of significant infection. Her history, exam, diagnostic testing and current condition do not suggest that this patient is having acute myocardial infarction, significant arrhythmia, unstable angina, pulmonary embolism, aortic dissection, pneumothorax, severe pneumonia, an acute abdomen, significant cellulitis, abscess, sepsis or other significant pathology that would warrant further testing, continued ED treatment, admission or cardiology, TRANSITION NURSE or other specialist consultation at this time. Discussed labs, and imaging results with patient. She states she has a follow- up appoint with Dr. Chatterjee next Monday and therefore recommend that she keeps that appointment. Also recommend close follow-up with primary care doctor for continued evaluation if her palpitations continues. Patient expressed understanding of instructions and agree with plan. Patient stable at time of d/c. Critical care attestation.: If time is entered above; I have spent that time in minutes in the direct care of this critically ill patient, excluding procedure time. ED Disposition Clinical Impression: Abnormal vaginal bleeding, Post-op bleeding, Palpitations, Presence of surgical incision, Problem involving surgical incision Disposition: DC-01 TO HOME OR SELFCARE Is pt being admited?: No Does the pt Need Aspirin: No Condition: Stable Instructions: Wound Care, Adult, Delivery, Care After, Palpitations, [id number] Additional Instructions: Keep the surgical incision clean daily with soap and water. Dry well after each cleaning and apply thin layer of Neosporin after each cleaning. Take the Keflex as prescribed for possible infection. Recommend close follow-up with your TRANSITION NURSE either tomorrow or first thing next week. Also recommend follow-up with your primary care doctor and or manager deli if your palpitations continue. Return to the ER if your symptoms changes or worsens in any way. Prescriptions: cephALEXin [Keflex] 500 mg PO Q8HR #21 cap Referrals: ROSLYN ANDERS MD [Staff Physician] - 3-5 Days ABIODUN CHATTERJEE MD [Primary Care Provider] - 2-3 Days Forms: Accompanied Note, Work/School Release Form(ED) Time of Disposition: 20:55
--- NOTE | 2021-03-11 18:31 | XRay Report ---
CHEST 2 VIEWS INDICATION / CLINICAL INFORMATION: Palpitations. FINDINGS: SUPPORT DEVICES: None. HEART / MEDIASTINUM: No significant abnormality. LUNGS / PLEURA: No significant pulmonary or pleural abnormality. No pneumothorax. ADDITIONAL FINDINGS: No significant additional findings. IMPRESSION: 1. No acute findings. Signer Name: Ben Lemus MD Signed: 03/11/2021 6:26 PM Workstation Name: [id number]
[2021-03-11 18:40] LABS: Bacteria,Urine 1+ /HPF (Negative); Bilirubin,Urine NEG (Negative); Blood,Urine LG (Negative); Color,Urine Yellow (Yellow); Mucus,Urine FEW /HPF; Protein,Urine <15 mg/dL mg/dL (Negative)
--- NOTE | 2021-03-11 18:56 | Ultrasound Report ---
ULTRASOUND PELVIS INDICATION / CLINICAL INFORMATION: very heavy vag bleeding post . TECHNIQUE: Transabdominal. Duplex Color Doppler used: Yes. COMPARISON: Obstetric ultrasound dated 02/23/21 FINDINGS: UTERUS: - Appearance: Complex/hypoechoic collection in the lower uterine segment likely the site of scar. This likely represents hematoma/blood clot. This measures 2.7 x 4.5 cm. - Size (cm): 13.7 x 6.0 x 9.3 - Endometrial Complex (if present): No significant abnormality.. Thickness in cm (if measured) = 0.3 - Mass or cyst: None. - Additional findings: None. RIGHT ADNEXA: No significant ovarian cyst or mass. Normal color Doppler blood flow. LEFT ADNEXA: Physiologic cyst in the left ovary. Normal color Doppler blood flow. URINARY BLADDER: Contracted. FREE FLUID: None. ADDITIONAL FINDINGS: None. IMPRESSION: 1. Probable hematoma/blood clot in the lower uterine segment related to site. Signer Name: Minh Pruitt MD Signed: 03/11/2021 6:52 PM Workstation Name: [id number]
[2021-03-11] MEDS ORDERED: SODIUM CHLORIDE 0.9% 1000 ML 1,000 ML IV ONE (19:52)
--- NOTE | 2021-03-11 20:48 | Cat Scan Report ---
CT CHEST WITH CONTRAST INDICATION / CLINICAL INFORMATION: Palpitations/chest tightness; postop . TECHNIQUE: Axial CT images were obtained through the chest after 100 mL IV contrast. All CT scans at this locati on are performed using CT dose reduction for ALARA by means of automated exposure control. COMPARISON: None available. FINDINGS: HEART: No significant abnormality. THORACIC AORTA: No significant abnormality. MEDIASTINUM and RENEE: No significant abnormality. LUNGS: No acute air space or interstitial disease. PLEURA: No significant pleural effusion. No pneumothorax. ADDITIONAL FINDINGS: Mild bilateral axillary adenopathy.. UPPER ABDOMEN: No significant abnormality. SKELETAL SYSTEM: No significant abnormality. IMPRESSION: 1. No significant abnormality. Signer Name: Ben Lemus MD Signed: 03/11/2021 8:44 PM Workstation Name: [id number]
[2021-03-11] MEDS ORDERED: IBUPROFEN 800 MG TAB PO ONE (21:00)
--- NOTE | 2021-03-12 10:17 | Electrocardiograph Report ---
[facility] Test Date: 2021-03-11 Test Time: 14:13:16 Pat Name: IZABELLA DIAZ Department: Room: Gender: F Data Analysis Intern: FARTUN : 1990 Requested By: ARNIE WYLIE Order Number: [id number] Reading MD: Devon Oleary Measurements Intervals [place] Rate: 99 P: 57 LA: 143 QRS: 37 QRSD: 75 T: 58 QT: 343 QTc: 441 Interpretive Statements Sinus rhythm No previous ECG available for comparison Electronically Signed On 03-12-2021 10:17:37 EDT by Devon Oleary
== END 2021-03-11 21:01 | disposition home or self-care (01) ==
LOC: ED 12:59
DX: O75.4 Other complications of obstetric surgery and procedures (principal); O90.89 Other complications of the puerperium, not elsewhere classified; N93.9 Abnormal uterine and vaginal bleeding, unspecified; R00.2 Palpitations; I10 Essential (primary) hypertension; Z98.890 Other specified postprocedural states; Z79.84 Long term (current) use of oral hypoglycemic drugs; Z79.899 Other long term (current) drug therapy
CPT/HCPCS: 36415; 71046; 71260; 76856; 80053; 81001; 84443; 84484; 84703; 85025; 85610; 85730; 87086; 93005; 96360; 99284; J7030; Q9967